=== PATIENT | female | born 1990 | race African-American/Black ===

== ENCOUNTER 2016-07-11 00:15 | Emergency (ER) | payer MEDICAID ==
[~2016-07-11] VITALS: Ht 170.2 cm; Wt 66.7 kg
[~2016-07-11 00:15] MED LIST: ALBUTEROL SULF8.5 GM INH; AMOXICILLIN500 MG ORAL; AUGMENTIN 875-1 EAC1 ORAL; BACTRIM DS TAB1 EAC1 ORAL; CYCLOBENZAPRINE10 MG ORAL; DIFLUCAN50 MG ORAL; HYDROCODON-ACE1 EA15 ORAL; IBUPROFEN600 MG ORAL; KEFLEX250 MG ORAL; KEFLEX500 MG ORAL; PREDNISONE20 MG ORAL; PRENA1 TRUE CO1 EACH PO; TYLENOL EXTRA500 MG ORAL; XANAX1 MG ORAL
[2016-07-11 00:59] LABS: KETONES,URINE NEGATIVE (NEGATIVE); LEUKOCYTE ESTERASE ,URINE 1+ (NEGATIVE); NITRITE,URINE NEGATIVE (NEGATIVE); PH,URINE 6.5 (4.5-8.0); PROTEIN,URINE NEGATIVE (NEGATIVE); UROBILINOGEN,URINE 1 MG/DL (0.0-1.0)
[2016-07-11 01:02] LABS: APPEARANCE,URINE SLIGHTLY CLOUDY
[2016-07-11 01:19] VITALS: BP 106/67
[2016-07-11 01:54] LABS: BACTERIA,URINE MODERATE /HPF; SQUAMOUS EPITHELIAL CELL,UR MODERATE /LPF (NONE/OCC)
[2016-07-11] MEDS ORDERED: KEFLEX500 MG ORAL (01:57)
[2016-07-11] MEDS ORDERED: IBUPROFEN600 MG ORAL (01:57)
[2016-07-11 02:19] VITALS: BP 106/67
--- NOTE | 2016-07-14 18:51 | Emergency Room Report ---
History of Present Illness General Chief Complaint: Female Urogenital Problems Source: Patient Present Illness HPI Patient is a 25-year-old female who presented after having increased dysuria and urinary frequency. Patient had gradual onset of symptoms patient reported having increased frequency of urination she denied any hematuria. Patient reported having some mild low back pain. Patient prior history of urinary tract infections. Allergies: Coded Allergies: EGG (Unverified Allergy, Unknown, 09/06/14) RASPBERRY (Unverified Allergy, Unknown, 09/06/14) Patient History Past Medical History: see triage record Last Menstrual Period: 3 WEEKS AGO Reviewed Nursing Documentation: PMH: Agreed, PSxH: Agreed Nursing Documentation-PMH Hx Asthma: Yes Review of Systems All Other Systems: negative except mentioned in HPI Physical Exam Vital Signs Date Time Temp Pulse Resp B/P Pulse Ox O2 Delivery O2 Flow Rate FiO2 07/11/16 00:24 97.5 66 16 120/76 100 Room Air Sp02 EP Interpretation: reviewed, normal General Appearance: normal inspection, well appearing, no apparent distress, alert, GCS 15, non-toxic Head: atraumatic ENT: normal ENT inspection, hearing grossly normal, normal voice Neck: normal inspection, full range of motion, supple, no bony tend Respiratory: normal inspection, lungs clear, normal breath sounds, no respiratory distress, no retraction, no wheezing Cardiovascular #1: regular rate, rhythm, no edema Gastrointestinal: normal inspection, normal bowel sounds, non tender, soft, no guarding, no hernia Genitourinary: no CVA tenderness Musculoskeletal: normal inspection, back normal, normal range of motion Neurologic: normal inspection, alert, oriented x3, responsive, fagoter III-XII nml as tested, speech normal Psychiatric: normal inspection, judgement/insight normal, mood/affect normal Skin: normal inspection, normal color, no rash Medical Decision Making Diagnostic Impression: Primary Impression: UTI (urinary tract infection) ER Course Patient presented for abdominal pain. Differential diagnoses included ischemic bowel, appendicitis, perforated viscus, abdominal aortic aneurysm, inferior myocardial infarction, viral gastroenteritis Patient's benign exam and does not appear to require any further imaging or laboratory testing at this time. A urinalysis showed evidence of a urinary tract infection. Patient given prescription for antibiotics.The patient is advised to follow up with primary care doctor in 1-2 days. Patient is advised to return if any worsening condition or if any changes in status that are concerning. Labs Test 1/31/17 00:35 Urine Color Yellow Urine Appearance Slightly cloudy Urine pH 6.5 (4.5-8.0) Urine Specific [place] 1.020 (1.005-1.035) Urine Protein Negative (NEGATIVE) Urine Glucose (UA) Negative (NEGATIVE) Urine Ketones Negative (NEGATIVE) Urine Occult Blood 1+ (NEGATIVE) Urine Nitrite Negative (NEGATIVE) Urine Bilirubin Negative (NEGATIVE) Urine Urobilinogen 1 MG/DL (0.0-1.0) Urine Leukocyte Esterase 1+ (NEGATIVE) Urine RBC 2-4 /HPF (0 - 2) Urine WBC 5-10 /HPF (0 - 2) Urine Squamous Epithelial Cells Moderate /LPF (NONE/OCC) Urine Bacteria Moderate /HPF (NONE) Urine HCG, Qualitative Negative Last Vital Signs Date Time Temp Pulse Resp B/P Pulse Ox O2 Delivery O2 Flow Rate FiO2 07/11/16 02:19 98.4 67 16 106/67 97 Room Air Status: improved Disposition: HOME, SELF-CARE Condition: Stable Scripts Cephalexin* (KEFLEX*) 500 Mg Capsule 500 MG ORAL Q6H, #28 CAP 0 Refills Prov: Bello Donnelly 07/11/16 Ibuprofen* (MOTRIN*) 600 Mg Tablet 600 MG ORAL Q8H Y for For Pain, #30 TAB 0 Refills Prov: Bello Donnelly 07/11/16 Patient Instructions: Urinary Tract Infection Bello Donnelly Jul 14, 2016 18:51
== END 2016-07-11 02:21 | disposition home or self-care (01) ==
LOC: EMR 00:44
DX: N39.0 Urinary tract infection, site not specified (principal); J45.909 Unspecified asthma, uncomplicated; Z91.012 Allergy to eggs; Z91.018 Allergy to other foods
CPT/HCPCS: 81003; 81025; 87086; 99284

== ENCOUNTER 2017-09-21 15:38 | Emergency (ER) | payer MEDICAID ==
[~2017-09-21] VITALS: Ht 170.2 cm; Wt 70.8 kg
[2017-09-21] MEDS ORDERED: HYDROcodone/Acetamin 7.5/325 tab ORAL ONE (16:00)
[2017-09-21] MEDS ORDERED: IBUPROFEN600 MG ORAL (16:51)
--- NOTE | 2017-09-21 16:51 | Emergency Room Report ---
History of Present Illness General Chief Complaint: Lower Extremity Injury Source: Patient Present Illness HPI 27-year-old female presents to the emergency department complaining of 6 out of 10 in severity localized left ankle and dorsal foot pain since Sunday. Patient reports she was walking down some stairs when she twisted her ankle. Patient states she has been taking ibuprofen and icing and however her symptoms have not improved. Patient reports pain exacerbation upon weight-bearing and walking. Patient denies previous injury to this extremity. Patient denies bruising, erythema, increased palpation, obvious deformity. Patient reports some mild swelling. She did not hit her head she did not lose consciousness she denies neck or back pain. Allergies: Coded Allergies: EGG (Unverified Allergy, Unknown, 09/06/14) RASPBERRY (Unverified Allergy, Unknown, 09/06/14) Patient History Past Medical History: see triage record Past Surgical History: none Pertinent Family History: none Last Menstrual Period: 08/24/17 Now: No : 7 Para: 3 Immunizations: UTD Reviewed Nursing Documentation: PMH: Agreed; PSxH: Agreed Nursing Documentation-PMH Hx Asthma: Yes Review of Systems All Other Systems: negative except mentioned in HPI Physical Exam Vital Signs Date Time Temp Pulse Resp B/P (MAP) Pulse Ox O2 Delivery O2 Flow Rate FiO2 09/21/17 15:45 98.0 68 18 109/70 95 Room Air 98.1 Sp02 EP Interpretation: reviewed, normal General Appearance: no apparent distress, alert, GCS 15, non-toxic Head: normocephalic, atraumatic ENT: hearing grossly normal, normal voice Neck: full range of motion Respiratory: lungs clear, normal breath sounds, speaking full sentences Cardiovascular #1: regular rate, rhythm, normal capillary refill Cardiovascular #2: 2+ dorsalis pedis (R), 2+ dorsalis pedis (L) Musculoskeletal: back normal, gait/station normal, normal range of motion - with some pain , swelling - lateral left ankle and dorsum of the foot. , tender - TTP to the lateral left ankle and dorsal left foot. swelling noted. Neurologic: alert, oriented x3, responsive, motor strength/tone normal, sensory intact, speech normal, grossly normal Psychiatric: judgement/insight normal Skin: normal color, no rash, warm/dry, well hydrated Medical Decision Making PA Attestation Dr. Montilla is my supervising Physician whom patient management has been discussed with. Diagnostic Impression: Primary Impression: Left ankle sprain Qualified Codes: S93.402A - Sprain of unspecified ligament of left ankle, initial encounter ER Course Pt. presents to the ED c/o [ ] Ddx considered but are not limited to Fracture, dislocation, contusion, Sprain/ Strain/Spasm just to name a few. Vital signs: are WNL, pt. is afebrile H&PE are most consistent with musculoskeletal injury will perform imaging to r/ o fractures/dislocations. ORDERS: - X-ray Left Foot (3 views) and Ankle ( 3 views) - negative for fx, Dislocation, or significant soft tissue injury, per preliminary read in ED, and signed by JOAO Rodríguez, my supervising physician has reviewed, and agrees with my interpretation. ED INTERVENTIONS: - [place] PO -Air Splint applied to the left ankle by technical marketing consultant. Pt. remains neurovascularly intact. -Patient is provided with crutches and instructed on their use DISCHARGE: At this time pt. is stable for d/c to home. Will provide printed patient care instructions, and any necessary prescriptions. Care plan and follow up instructions have been discussed with the patient prior to discharge. Other X-Ray Diagnostic Results Other X-Ray Diagnostic Results #1: X-Ray ordered: Left Foot # of Views/Limited Vs Complete: 3 View Indication: Pain EP Interpretation: Yes PA Xray: Interpretation reviewed, by supervising MD, and agrees with findings. Interpretation: no dislocation, no soft tissue swelling, no fractures Impression: No acute disease Electronically Signed by: Rema Rodríguez PA-C Other X-Ray Diagnostic Results #2: X-Ray ordered: Left ankle # of Views/Limited Vs Complete: 3 View Indication: Pain EP Interpretation: Yes PA Xray: Interpretation reviewed, by supervising MD, and agrees with findings. Interpretation: no dislocation, no fractures, other - soft tissue swelling noted. Impression: No acute disease - soft tissue swelling noted. Electronically Signed by: Rema Rodríguez PA-C Last Vital Signs Date Time Temp Pulse Resp B/P (MAP) Pulse Ox O2 Delivery O2 Flow Rate FiO2 09/21/17 16:05 98.0 09/21/17 15:45 68 18 109/70 95 Room Air Disposition: HOME, SELF-CARE Condition: Stable Scripts Ibuprofen* (MOTRIN*) 600 Mg Tablet 600 MG ORAL THREE TIMES A DAY, #20 TAB 0 Refills Prov: Rema Rodríguez 09/21/17 Departure Forms: Return to Work Return to Work Date: Sep 24, 2017 Work Restrictions: No Heavy Lifting, No Prolonged Standing, Desk Work Only Other Restrictions: no stairs, allow use of crutches and elevator. Return to Full Activity: Sep 28, 2017 Patient Instructions: Ankle Sprain Additional Instructions: Take medications as directed. Follow up with a Primary Care Provider in 3-5 days, even if your symptoms have resolved. --Please review list of primary care clinics, if you do not already have a primary care provider Return sooner to ED if new symptoms occur, or current symptoms become worse. - Please note that this Emergency Department Report was dictated using [employer] technology software, occasionally this can lead to erroneous entry secondary to interpretation by the dictation equipment. Rema Rodríguez Sep 21, 2017 16:51
[2017-09-21 17:11] VITALS: BP 109/70
--- NOTE | 2017-09-21 17:19 | Diagnostic Imaging Report ---
Indications: Left foot pain Technique: 3 views of the left foot Comparison: None Findings: No acute fractures. No dislocations. Joint spaces are preserved. No radiopaque foreign body. Normal mineralization. Impression: No acute process
--- NOTE | 2017-09-21 17:20 | Diagnostic Imaging Report ---
Indication: Left ankle pain Technique: 3 views of the length ankle Comparison: none Findings: No acute fractures. No dislocations. Joint spaces are preserved. Normal mineralization. No radiopaque foreign body. Impression: Negative
== END 2017-09-21 17:12 | disposition home or self-care (01) ==
LOC: EMR 17:12
DX: S93.402A Sprain of unspecified ligament of left ankle, initial encounter (principal); X50.1XXA Overexertion from prolonged static or awkward postures, initial encounter; Y92.9 Unspecified place or not applicable; J45.909 Unspecified asthma, uncomplicated; Z91.012 Allergy to eggs; Z91.018 Allergy to other foods
CPT/HCPCS: 99284